=== PATIENT | male | born 1990 | race Caucasian/White ===

== ENCOUNTER 2020-07-08 19:47 | Emergency (ER) | payer OTHER ==
[2020-07-08 20:01] VITALS: BP 140/83; PULSE 112; TEMP 98.7; BMI 29.9
[2020-07-08] MEDS ORDERED: IBUPROFEN 400 MG TABLET (FP) PO ONE ×2 (20:33→20:42)
== END 2020-07-08 20:52 | disposition home or self-care (01) ==
LOC: JERFT 19:47 → JER 19:47 → JERFT 20:52
DX: S93.402A Sprain of unspecified ligament of left ankle, initial encounter (principal)
CPT/HCPCS: 73610-TC-LT-FY; 99283-25

== ENCOUNTER 2022-08-12 22:55 | Emergency (ER) | payer OTHER ==
[2022-08-12 23:04] VITALS: BMI 34.2
[2022-08-13 00:44] LABS: URINE APPEARANCE CLEAR; URINE BILIRUBIN NEGATIVE (NEGATIVE); URINE COLOR YELLOW; URINE GLUCOSE (UA) NEGATIVE (NEGATIVE); URINE KETONE NEGATIVE (NEGATIVE); URINE LEUK ESTERASE NEGATIVE (NEGATIVE); URINE NITRITE NEGATIVE (NEGATIVE); URINE PROTEIN NEGATIVE (NEGATIVE); URINE UROBILINOGEN 0.2 mg/dL (0.2-1.0)
[2022-08-13 00:52] LABS: BASO % 0.4 % (0-2.0); EOS % 1.7 % (0-4.5); HEMATOCRIT 42.6 % (35.4-49); HEMOGLOBIN 14.4 GM/dL (11.7-16.9); LYMPH % 45.7 % (8-40); MCH 30.1 pg (25.7-33.7); MCHC 33.8 g/dl (32.0-35.9); MEAN PLT VOLUME 8.7 fl (7.5-11.1); MONO % 6.9 % (3.8-10.2); NEUT % 45.3 % (42.8-82.8); PLATELET COUNT 252 10^3/uL (134-434); RBC 4.79 M/mm3 (4.00-5.60); RDW 13.6 % (11.9-15.9); WHITE BLOOD COUNT 11.9 K/mm3 (4.0-10.0)
[2022-08-13 01:04] LABS: CHLORIDE 102 mmol/L (98-107); SODIUM 125 mmol/L (136-145)
[2022-08-13 01:07] LABS: ALBUMIN 4.1 g/dl (3.4-5.0); BLOOD UREA NITROGEN 11.3 mg/dL (7-18); CO2 28 mmol/L (21-32)
[2022-08-13 01:08] LABS: GLUCOSE,RANDOM 78 mg/dL (74-106)
[2022-08-13 01:10] LABS: SGPT/ALT 54 U/L (13-61)
[2022-08-13 01:11] LABS: CREATININE 1.1 mg/dL (0.55-1.3); SGOT/AST 25 U/L (15-37)
[2022-08-13 01:12] LABS: BILIRUBIN,TOTAL 0.8 mg/dL (0.2-1)
[2022-08-13 01:13] LABS: ALK PHOS 11 U/L (45-117)
[2022-08-13 01:40] LABS: ANION GAP -5 MMOL/L (8-16)
[2022-08-13 02:13] VITALS: BP 142/95; PULSE 82; RESP 20; TEMP 98
[2022-08-13 02:57] LABS: ALBUMIN 4.2 g/dl (3.4-5.0); CALCIUM 10.2 mg/dL (8.5-10.1)
[2022-08-13 03:01] LABS: CREATININE 1.1 mg/dL (0.55-1.3)
[2022-08-13 03:02] LABS: BILIRUBIN,TOTAL 0.4 mg/dL (0.2-1); TOT PROT 7.9 g/dl (6.4-8.2)
== END 2022-08-13 03:46 | disposition home or self-care (01) ==
LOC: JER 22:55
DX: R03.0 Elevated blood-pressure reading, without diagnosis of hypertension (principal)
CPT/HCPCS: 36415; 71045-TC-FY; 80053; 81003; 84484; 85025; 87086; 93005; 93010; 99285-25

== ENCOUNTER 2023-04-04 10:23 | Emergency (ER) | payer OTHER ==
[2023-04-04 10:44] VITALS: BP 137/88; PULSE 95; RESP 19; TEMP 98.2; BMI 34.4
== END 2023-04-04 12:29 | disposition home or self-care (01) ==
LOC: JER 10:23
DX: R06.02 Shortness of breath (principal); F41.9 Anxiety disorder, unspecified; R42 Dizziness and giddiness
CPT/HCPCS: 93005; 93010; 99283-25